=== PATIENT | male | born 1990 | race Two or more races ===

== ENCOUNTER 2021-05-10 19:03 | Emergency (ER) | payer OTHER ==
[~2021-05-10] VITALS: Ht 170.2 cm; Wt 95.3 kg
--- NOTE | 2021-05-10 19:19 | NUR ---
Recieved report from ERNESTO Kang.
--- NOTE | 2021-05-10 19:25 | NUR ---
Dr. Nunes at bedside for MSE.
[2021-05-10] MEDS ORDERED: LORAZEPAM 0.5 MG TABLET PO ONE (19:30)
[2021-05-10] MEDS ORDERED: OLANZAPINE 5 MG TABLET PO ONE (19:30)
--- NOTE | 2021-05-10 19:31 | NUR ---
Pt. bib RA 88 for panic attack while driving on free[address]. Pt. reports he took a marijuana edible for the first time 20-30 min [employer]. Pt. tachycardic, hr 110-120's. Pt. a&ox4. Denies any other symptoms other than anxiety.
[2021-05-10] MEDS ORDERED: OLANZAPINE 5 MG TABLET ONE (19:47)
[2021-05-10] MEDS ORDERED: LORAZEPAM 1 MG TABLET ONE (19:47)
--- NOTE | 2021-05-10 21:07 | NUR ---
Pt. sleeping. Sp02 drops down to 85-90 while sleeping, goes back up when awake. Pt. placed on 2L nc. Dr. Nunes aware.
--- NOTE | 2021-05-11 04:35 | NUR ---
Pt. awake. Reports he is less anxious. Vss.
--- NOTE | 2021-05-11 04:58 | NUR ---
Patient discharged to home in stable condition. Written and verbal after care instructions given. Patient verbalizes understanding of instructions. Stressed follow up or return to ER for worsening s/s. Pt. walks with steady gait, Vss, no signs of distress. All belongings taken. Pt. to be driven home by sister.
[2021-05-11 04:59] VITALS: BP 104/58
== END 2021-05-11 05:00 | disposition home or self-care (01) ==
LOC: ER 19:07
DX: F12.180 Cannabis abuse with cannabis-induced anxiety disorder (principal); F12.129 Cannabis abuse with intoxication, unspecified
CPT/HCPCS: 93005; A4663